=== PATIENT | female | born 1975 | race Caucasian/White ===

== ENCOUNTER 2017-08-15 17:29 | Emergency (ER) ==
[2017-08-15 17:38] VITALS: BP 158/77; TEMP 98.5; BMI 18.3
[2017-08-15] MEDS ORDERED: TORADOL IM STA (19:46)
[2017-08-15] MEDS ORDERED: DECADRON 4 MG/ML SDV IM STA (19:46)
--- NOTE | 2017-08-15 19:51 | ED.PDOC ---
General ED Provider: Dr. JOEY ALCALA Chief Complaint: Chest Pain Stated Complaint: Mid sternal chest pain, heavyness, started since noon, vomited 3 times at work, sore throat. Time Seen by Physician: 19:49 Information Source: Patient Nursing and Triage Documentation Reviewed and Agree: Yes Reviewed sepsis parameters & appropriate labs ordered?: No System Inflammatory Response Syndrome: Not Applicable Sepsis Protocol: For patient's 13 years and over: Temp is 96.8 and below OR 101 and greater Pulse >90 BPM Resp >20/minute Acutely Altered Mental Status Are patient's symptoms suggestive of a new infection, such as: -Pneumonia -Skin, Soft Tissue -Endocarditis -UTI -Bone, Joint Infection -Implantable Device -Acute Abdominal Infection -Wound Infection -Meningitis -Blood Stream Catheter Infection -Unknown Cardiovascular Complaint Exam - Chest Pain Complaint/Exam Onset: Gradual Symptoms Are: Still present Timing: Constant Initial Severity: Moderate Current Severity: Moderate Location: Reports: Midsternal Pain Radiates: Reports: Back, Left shoulder, Right shoulder, Left arm, Right arm Character: Reports: Aching, Tightness, Heaviness Aggravating: Reports: Deep breaths Alleviating: Reports: None Associated Signs and Symptoms: Reports: Nausea, Vomiting, Cough. Denies: Diaphoresis, Fever, Palpitations, Hemoptysis, Back pain, Abdominal pain, Dizziness, Short of air, Calf pain, Calf swelling Related Surgical History: Reports: None History of Healthcare-Acquired Pneumonia: Reports: No AMI/ACS Risk Factors: Reports: None TAD Risk Factors: Reports: None Pulmonary Embolism Risk Factors: Reports: None Prior Care for this Complaint: No Recent Stress Test: No Recent Echo/LV Function: No JVD Present: No Subcutaneous Emphysema Present: No Diminshed Breath Sounds: No Reproducible Chest Wall Pain: No Bilateral Pulses Present: No Unequal Pulses Noted: No If Risk Factors for AMI/ACS Consider: EKG, Cardiac Enzymes, Serial Studies Differential Diagnoses: ACS, Stable Angina, GI Diseasae Quality Indicators For Acute [place] or Cardiac Chest Pain: EKG in 10min. Review of Systems - Review Of Systems Constitutional: Reports: No symptoms, Malaise, Weakness Eyes: Reports: No symptoms Ears, Nose, Mouth, Throat: Reports: Throat pain Respiratory: Reports: No symptoms Cardiac: Reports: Chest pain GI: Reports: No symptoms : Reports: No symptoms Musculoskeletal: Reports: No symptoms Skin: Reports: No symptoms Neurological: Reports: No symptoms Endocrine: Reports: No symptoms Hematologic/Lymphatic: Reports: No symptoms All Other Systems: Reviewed and Negative Past Medical History - Past Medical History Previously Healthy: Yes Endocrine: Reports: None Cardiovascular: Reports: Hypertension Respiratory: Reports: None Hematological: Reports: None Gastrointestinal: Reports: None Genitourinary: Reports: None Neuro/Psych: Reports: None Musculoskeletal: Reports: None Cancer: Reports: None Last Menstrual Period: hysterectomy - Surgical History General Surgical History: Reports: None - Family History Family History: Reports: None - Social History Smoking Status: Current every day smoker, Heavy tobacco smoker Smoking Cessation Counseling Time: > 10 min Hx Substance Use: No Alcohol Screening: None Physical Exam - Physical Exam Appearance: Ill-appearing, Thin Eyes: COOPER, EOMI, Conjunctiva clear ENT: Ears normal, Nose normal, Oropharynx normal Respiratory: Airway patent, Breath sounds clear, Breath sounds equal, Respirations nonlabored Cardiovascular: RRR, Pulses normal, No rub, No murmur GI/: Soft, Nontender, No masses, Bowel sounds normal, No Organomegaly Musculoskeletal: Normal strength, ROM intact, No edema, No calf tenderness Skin: Warm, Dry, Normal color Neurological: Sensation intact, Motor intact, Reflexes intact, Cranial nerves intact, Alert, Oriented Psychiatric: Affect appropriate, Mood appropriate Interpretation - Radiology Interpretation Radiology Interpretation By: ED Physician Radiology Results: Negative Exam Interpreted: CXR - EKG Interpretation Time of EKG #1: 19:40 Rate: Normal Rhythm: Sinus Re-Evaluation - Re-Evaluation Time of Re-Evaluation: 21:06 Status: Improved Critical Care Note - Critical Care Note Total Time (mins): 30 Course - Course Hematology/Chemistry: 08/15/17 19:50 08/15/17 19:50 Orders, Labs, Meds: Lab Review 08/15/17 08/15/17 19:50 19:50 WBC 6.66 RBC 3.91 L Hgb 12.2 Hct 37.2 MCV 95.1 MCH 31.2 H MCHC 32.8 RDW Coeff of Oumar 13.4 Plt Count 237 Immature Gran % (Auto) 0.2 Neut % (Auto) 64.0 Lymph % (Auto) 25.5 [place] % (Auto) 7.7 Eos % (Auto) 1.7 Baso % (Auto) 0.9 Immature Gran # (Auto) 0.0 Neut # (Auto) 4.3 Lymph # (Auto) 1.7 [place] # (Auto) 0.5 Eos # (Auto) 0.1 Baso # (Auto) 0.1 Sodium 144 Potassium 3.8 Chloride 111 H Carbon Dioxide 24 Anion Gap 12.8 BUN 14 Creatinine 0.78 Estimated GFR (MDRD) 81.00 BUN/Creatinine Ratio 17.94 Glucose 90 Calcium 9.3 Total Bilirubin 0.5 AST 13 L ALT 9 L Alkaline Phosphatase 70 Total Creatine Kinase 74 Troponin I < 0.0100 Total Protein 7.1 Albumin 3.8 Globulin 3.3 Albumin/Globulin Ratio 1.15 Orders Category Date Time Status EKG-(ED ONLY) Stat CARDIO 08/15/17 19:52 Completed CBC W/ AUTO DIFF Stat LAB 08/15/17 19:50 Completed COMPREHENSIVE METABOLIC PANEL Stat LAB 08/15/17 19:50 Completed CREATINE KINASE Stat LAB 08/15/17 19:50 Completed TROPONIN I Stat LAB 08/15/17 19:50 Completed Aspirin [Aspirin Chewable] MEDS 08/15/17 19:52 Discontinued 324 mg PO ONCE STA Dexamethasone 4 mg/ml Inj [Decadron 4 mg/ml Sdv] MEDS 08/15/17 19:46 Discontinued 4 mg IM ONCE STA Ketorolac Tromethamine [Toradol] MEDS 08/15/17 19:46 Discontinued 30 mg IM ONCE STA CHEST, 2 VIEWS PA & LAT Stat RADS 08/15/17 19:46 Taken Medications Discontinued Medications Generic Name Dose Route Start Last Admin Trade Name Freq PRN Reason Stop Dose Admin Aspirin 324 mg 08/15/17 19:52 08/15/17 20:21 Aspirin Chewable PO 08/15/17 19:53 324 mg ONCE STA Administration Dexamethasone Sodium Phosphate 4 mg 08/15/17 19:46 08/15/17 20:25 Decadron 4 Mg/Ml Sdv IM 08/15/17 19:47 4 mg ONCE STA Administration Ketorolac Tromethamine 30 mg 08/15/17 19:46 08/15/17 20:23 Toradol IM 08/15/17 19:47 30 mg ONCE STA Administration Vital Signs: Temp Pulse Resp BP Pulse Ox 08/15/17 17:30 98.5 F 101 H 22 158/77 H 98 TONY Risk Score TONY Risk Score: Risk Score Odds of by 30D 0 0.1 (0.1-0.2) 1 0.3 (0.2-0.3) 2 0.4 (0.3-0.5) 3 0.7 (0.6-0.9) 4 1.2 (1.0-1.5) 5 2.2 (1.9-2.6) 6 3.0 (2.5-3.6) 7 4.8 (3.8-6.1) Departure - Departure Time of Disposition: 21:06 Disposition: HOME SELF-CARE Discharge Problem: URTI (acute upper respiratory infection), Pleurisy Instructions: Pleurisy (ED) Condition: Stable Pt referred to PMD for follow-up: Yes IPMP verified?: No Additional Instructions: tAKE MEDICATION WITH FOOD, iNCREASE HYDRATION f/U AT [facility] Prescriptions: Cephalexin [Keflex] 500 mg PO Q12HR #14 capsule Guaifenesin/Codeine Phosphate [Robitussin AC Syrup] 10 ml PO Q6H #1 bottle Prednisone 10 mg PO BIDWM #14 tablet Allergies/Adverse Reactions: Allergies No Known Allergies Allergy (Unverified 08/15/17 17:46) Home Medications: Ambulatory Orders Alprazolam [Xanax] 1 mg PO TID 08/15/17 Buspirone HCl 10 mg PO TID 08/15/17 Cephalexin [Keflex] 500 mg PO Q12HR #14 capsule 08/15/17 Cyanocobalamin (Vitamin B-12) [Cyanocobalamin Injection] 1,000 mcg IJ MONTHLY Guaifenesin/Codeine Phosphate [Robitussin AC Syrup] 10 ml PO Q6H #1 bottle 08/15 Hydrocodone/Acetaminophen [Hydrocodon-Acetaminophn 10-325] 1 each PO Q4HR PRN Nitroglycerin [Nitrostat] 0.4 mg SL Q5MIN X 3 DOSES PRN 08/15/17 Prednisone 10 mg PO BIDWM #14 tablet 08/15/17 Disposition Discussed With: Patient
[2017-08-15] MEDS ORDERED: ASPIRIN CHEWABLE PO STA (19:52)
--- NOTE | 2017-08-16 07:13 | DI ---
EXAM: Two views of the chest. History: Cough. Comparison: Chest radiograph 10/12/2011 Findings: Heart size is within normal limits. No focal consolidation. No appreciable pleural fluid and no pneumothorax. No acute osseous abnormalities. Impression: No acute cardiopulmonary process
== END 2017-08-15 21:24 | disposition home or self-care (01) ==
LOC: ED 17:29
DX: J06.9 Acute upper respiratory infection, unspecified (principal); R09.1 Pleurisy; F17.210 Nicotine dependence, cigarettes, uncomplicated
CPT/HCPCS: 36415; 80053; 82550; 84484; 85025; 93005; 93010; 96372; 99283